=== PATIENT | male | born 1985 | race Caucasian/White ===

== ENCOUNTER 2016-09-21 16:27 | Emergency (ER) | payer SELFPAY | END 2016-09-21 18:16 | disposition home or self-care (01) | LOC: D.ER 16:27 | DX: S61.210A Laceration without foreign body of right index finger without damage to nail, initial encounter (principal); X58.XXXA Exposure to other specified factors, initial encounter; F17.200 Nicotine dependence, unspecified, uncomplicated ==

== ENCOUNTER 2018-07-01 02:46 | Emergency (ER) | payer SELFPAY ==
[~2018-07-01] VITALS: Ht 182.9 cm; Wt 73.8 kg
[2018-07-01 02:49] VITALS: Ht 182.9 cm; Wt 73.8 kg
[2018-07-01 04:16] LABS: BASOPHILS 0.3 % (0-2); EOSINOPHILS 2.7 % (0-7); HEMATOCRIT 47.3 % (42.0-54.0); HEMOGLOBIN 16.7 g/dL (13.5-17.5); IMMATURE GRANULOCYTES 0.3 % (0-5); LYMPHOCYTES 13.4 % (15-50); MCH 29.9 pg (26.0-34.0); MCHC 35.3 g/dL (31.0-37.0); MCV 84.6 fL (80.0-100.0); MEAN PLATELET VOLUME 9.1 fL (7.4-10.4); MONOCYTES 8.1 % (2-11); NEUTROPHILS 75.2 % (40-80); PLATELET COUNT 246 10x3/uL (130-400); RBC 5.59 10x6/uL (4.20-6.10); RDW 13.3 % (11.5-14.5); WBC 11.3 10x3/uL (4.8-10.8)
[2018-07-01 04:32] LABS: ALKALINE PHOSPHATASE 98 U/L (46-116); ALT (SGPT) 32 U/L (10-68); AMYLASE - SERUM 32 U/L (25-115); CALC OSMOLALITY 278 mosm/kg (275-300); CALCIUM 9.3 mg/dL (8.5-10.1); CARBON DIOXIDE 31.2 mmol/L (21.0-32.0); CHLORIDE - SERUM 99 mmol/L (98-107); CREATININE - SERUM 0.8 mg/dL (0.6-1.3); GLUCOSE 113 mg/dL (74-106); LIPASE 107 U/L (73-393); POTASSIUM - SERUM 3.2 mmol/L (3.5-5.1); PROTEIN - SERUM 7.8 g/dL (6.4-8.2); SODIUM 139 mmol/L (136-145); UREA NITROGEN 12 mg/dL (7-18); eGFR NON AFRICAN AMERICAN > 90 mL/min (90-120)
[2018-07-01] MEDS ORDERED: ZOFRAN ODT4 MG/UDTAB PO (04:50)
[2018-07-01 05:56] VITALS: BP 123/87
[2018-07-01] MEDS ORDERED: OMEPRAZOLE20 M1 PO (23:07)
== END 2018-07-01 05:10 | disposition home or self-care (01) ==
LOC: D.ER 02:46
PROVIDERS: Emergency Medicine
DX: R10.13 Epigastric pain (principal); E87.6 Hypokalemia; R11.10 Vomiting, unspecified; F17.200 Nicotine dependence, unspecified, uncomplicated

== ENCOUNTER 2018-07-01 20:23 | Emergency (ER) | payer SELFPAY ==
[~2018-07-01] VITALS: Ht 182.9 cm; Wt 73.6 kg
[~2018-07-01 20:23] MED LIST: ZOFRAN ODT4 MG/UDTAB PO
[2018-07-01 20:30] VITALS: Ht 182.9 cm; Wt 73.6 kg
[2018-07-01 21:47] LABS: BASOPHILS 0.2 % (0-2); EOSINOPHILS 0.7 % (0-7); HEMATOCRIT 49.2 % (42.0-54.0); HEMOGLOBIN 17.9 g/dL (13.5-17.5); IMMATURE GRANULOCYTES 0.3 % (0-5); LYMPHOCYTES 10.1 % (15-50); MCH 30.8 pg (26.0-34.0); MCHC 36.4 g/dL (31.0-37.0); MCV 84.5 fL (80.0-100.0); MONOCYTES 8.7 % (2-11); PLATELET COUNT 257 10x3/uL (130-400); RBC 5.82 10x6/uL (4.20-6.10); RDW 13.5 % (11.5-14.5)
[2018-07-01 22:04] LABS: ALBUMIN 4.2 g/dL (3.4-5.0); ALKALINE PHOSPHATASE 95 U/L (46-116); ALT (SGPT) 28 U/L (10-68); BILIRUBIN - TOTAL 0.49 mg/dL (0.2-1.3); CALC OSMOLALITY 279 mosm/kg (275-300); CALCIUM 9.5 mg/dL (8.5-10.1); CARBON DIOXIDE 28.9 mmol/L (21.0-32.0); CHLORIDE - SERUM 98 mmol/L (98-107); CREATININE - SERUM 0.9 mg/dL (0.6-1.3); GLUCOSE 111 mg/dL (74-106); POTASSIUM - SERUM 3.6 mmol/L (3.5-5.1); PROTEIN - SERUM 8.3 g/dL (6.4-8.2); SODIUM 139 mmol/L (136-145); UREA NITROGEN 14 mg/dL (7-18); eGFR NON AFRICAN AMERICAN > 90 mL/min (90-120)
[2018-07-01 22:05] LABS: WBC 16.4 10x3/uL (4.8-10.8)
[2018-07-01 22:08] LABS: LIPASE 348 U/L (73-393); TROPONIN-I < 0.017 ng/mL (0.000-0.060)
[2018-07-01 22:09] LABS: AMYLASE - SERUM 59 U/L (25-115)
[2018-07-01] MEDS ORDERED: OMEPRAZOLE20 M1 PO (23:07)
[2018-07-02 00:42] VITALS: BP 128/78
== END 2018-07-02 00:05 | disposition home or self-care (01) ==
LOC: D.ER 20:23
PROVIDERS: Family Medicine
DX: R10.13 Epigastric pain (principal); R11.2 Nausea with vomiting, unspecified; F17.200 Nicotine dependence, unspecified, uncomplicated

== ENCOUNTER 2018-08-07 09:52 | Emergency (ER) | payer MEDICAID ==
[~2018-08-07] VITALS: Ht 182.9 cm; Wt 81.8 kg
[~2018-08-07 09:52] MED LIST changes: +OMEPRAZOLE20 M1 PO
[2018-08-07 10:01] VITALS: Ht 182.9 cm; Wt 81.8 kg
[2018-08-07] MEDS ORDERED: ACULAR LS5 ML LEFT EYE (10:37)
[2018-08-07] MEDS ORDERED: OCUFLOX 0.3 % OP5 ML LEFT EYE (10:37)
[2018-08-07 10:51] VITALS: BP 132/72
== END 2018-08-07 10:46 | disposition home or self-care (01) ==
LOC: D.ER 09:52
DX: S05.02XA Injury of conjunctiva and corneal abrasion without foreign body, left eye, initial encounter (principal); X58.XXXA Exposure to other specified factors, initial encounter; Y93.89 Activity, other specified; Y92.89 Other specified places as the place of occurrence of the external cause; S05.8X2A Other injuries of left eye and orbit, initial encounter